=== PATIENT | female | born 1935 | race Caucasian/White ===

== ENCOUNTER → 2018-08-01 | Outpatient (CLI) | payer MEDICARE, BC | END | disposition home or self-care (01) | LOC: CFH 14:35 | PROVIDERS: ATTEND Radiology Radiation Oncology | DX: M71.22 Synovial cyst of popliteal space [Baker], left knee (principal) ==

== ENCOUNTER → 2018-08-01 | Outpatient (CLI) | payer MEDICARE, BC | END | disposition home or self-care (01) | LOC: EDSTATUS 07-31 14:13 → ROC 08:26 | PROVIDERS: ATTEND Radiology Radiation Oncology | DX: C76.3 Malignant neoplasm of pelvis (principal); C79.2 Secondary malignant neoplasm of skin | CPT/HCPCS: G0463 ==

== ENCOUNTER → 2018-10-18 | Outpatient (CLI) | payer MEDICARE, BC | END | disposition home or self-care (01) | LOC: ROC 07:43 | PROVIDERS: ATTEND Radiology Radiation Oncology | DX: Z08 Encounter for follow-up examination after completed treatment for malignant neoplasm (principal); C77.4 Secondary and unspecified malignant neoplasm of inguinal and lower limb lymph nodes | CPT/HCPCS: G0463 ==